=== PATIENT | female | born 1960 | race Caucasian/White ===

== ENCOUNTER 2019-03-08 10:57 | Emergency (ER) | payer OTHER ==
[~2019-03-08] VITALS: Ht 152.4 cm; Wt 72.0 kg
[2019-03-08] MEDS ORDERED: SIMV20TA5 PO (12:49)
[2019-03-08] MEDS ORDERED: GABA600T13 PO (12:49)
[2019-03-08] MEDS ORDERED: PIOG30TA71 PO (12:49)
[2019-03-08] MEDS ORDERED: GLIP5TAB13 PO (12:49)
[2019-03-08] MEDS ORDERED: METF500T PO (12:49)
[2019-03-08] MEDS ORDERED: LISI30TA4 PO (12:49)
[2019-03-08] MEDS ORDERED: METH500T6 PO (12:49)
[2019-03-08] MEDS ORDERED: ALBU18HF2 INH (12:49)
[2019-03-08 12:54] LABS: CLARITY,URINE CLOUDY (Clear); COLOR,URINE YELLOW (Yellow); GLUCOSE, URINE 100 mg/dl (Neg); KETONES,URINE 15 mg/dl (Neg); LEUKOCYTE ESTERASE ,URINE NEGATIVE (Neg); NITRITES, URINE NEGATIVE (Neg); OCCULT BLOOD,URINE MODERATE (Neg); PROTEIN,URINE 100 mg/dl (Neg); UROBILINOGEN,URINE 0.2 E.U/dL (0.2-1.0)
[2019-03-08 12:57] LABS: UA COLLECTION TYPE OTHER
--- NOTE | 2019-03-08 13:00 | NUR ---
PT NOW ALSO CO BACK BPAIN AND ABD PAIN 10/10 WITH CHILLS.
[2019-03-08 13:02] LABS: BACTERIA,URINE 2+ /HPF (Neg); MUCUS STRANDS MANY /LPF (Neg); RBC,URINE 20-50 /HPF (0-2); SQUAMOUS EPITHELIAL CELL,UR MANY /LPF (FEW); WBC,URINE 0-4 /HPF (0-4)
[2019-03-08 13:20] VITALS: BP 151/77
[2019-03-08 13:21] LABS: BASOPHILS # (AUTO) 0.1 X10'3 (0-0.2); BASOPHILS % (AUTO) 0.5 % (0-1); EOSINOPHILS % (AUTO) 0.1 % (0-6); HEMATOCRIT 40.7 % (35.0-45.0); HEMOGLOBIN 13.6 g/dl (12.0-16.0); LYMPHOCYTES # (AUTO) 1.7 X10'3 (1.1-4.8); LYMPHOCYTES % (AUTO) 14.2 % (21-51); MEAN CORPUSCULAR HEMOGLOBIN 30.2 PG (27.0-31.0); MEAN CORPUSCULAR HGB CONC 33.3 g/dL (33.0-36.5); MEAN CORPUSCULAR VOLUME 90.8 FL (78-98); MEAN PLATELET VOLUME 9.4 FL (7.4-10.4); MONOCYTES # (AUTO) 0.6 X10'3 (0-0.9); MONOCYTES % (AUTO) 5.4 % (2-12); NEUTROPHILS # (AUTO) 9.3 X10'3 (1.8-7.7); NEUTROPHILS % (AUTO) 79.8 % (42-75); PLATELET COUNT 322 X10'3 (140-440); RED BLOOD COUNT 4.49 X10'6 (4.20-5.60); RED CELL DISTRIBUTION WIDTH 14.3 % (11.5-14.5); WHITE BLOOD COUNT 11.7 X10'3 (4.5-11.0)
[2019-03-08 13:37] LABS: ALANINE AMINOTRANSFERASE 21 U/L (12-78); ALBUMIN 3.8 G/DL (3.4-5.0); ALBUMIN/GLOBULIN RATIO 0.8 (1.1-1.5); ALKALINE PHOSPHATASE 108 IU/L (46-116); ANION GAP 12 (8-16); ASPARTATE AMINO TRANSFERASE 15 U/L (10-37); BILIRUBIN,TOTAL 0.4 MG/DL (0.1-1.0); BLOOD UREA NITROGEN 12 MG/DL (7-18); BUN/CREATININE RATIO 14.6 (6.6-38.0); CALCIUM 9.4 MG/DL (8.5-10.1); CHLORIDE 104 MMOL/L (99-107); CREATININE 0.82 MG/DL (0.40-0.90); GLUCOSE 195 MG/DL (70-104); POTASSIUM 3.7 MMOL/L (3.5-5.1); SODIUM 141 MMOL/L (135-145); TOTAL PROTEIN 8.4 G/DL (6.4-8.2); eGFR 71 ML/MIN
--- NOTE | 2019-03-09 20:08 | NUR ---
CALLED PT PER DR JACKSON REGARDING HEMATURIA AND INSTRUCTED PT TO FOLLOW UP WITH PMD FOR FURTHER WORK UP
== END 2019-03-08 14:11 | disposition home or self-care (01) ==
LOC: ER 10:59
DX: E11.9 Type 2 diabetes mellitus without complications (principal); I10 Essential (primary) hypertension; Z76.0 Encounter for issue of repeat prescription; R31.29 Other microscopic hematuria; E78.00 Pure hypercholesterolemia, unspecified; G89.29 Other chronic pain; M06.9 Rheumatoid arthritis, unspecified; F17.200 Nicotine dependence, unspecified, uncomplicated; F12.90 Cannabis use, unspecified, uncomplicated; Z79.899 Other long term (current) drug therapy
CPT/HCPCS: 36415; 80053; 81001; 82948; 85025; 99283

== ENCOUNTER 2019-04-06 09:24 | Emergency (ER) | payer MEDICAID ==
[~2019-04-06] VITALS: Ht 152.4 cm; Wt 73.0 kg
[~2019-04-06 09:24] MED LIST: ALBU18HF2 INH; GABA600T13 PO; GLIP5TAB13 PO; LISI30TA4 PO; METF500T PO; METH500T6 PO; PIOG30TA71 PO; SIMV-42 PO
[2019-04-06 09:27] VITALS: BP 165/80
[2019-04-06] MEDS ORDERED: PIOG30TA71 PO (10:23)
[2019-04-06] MEDS ORDERED: LISI30TA4 PO (10:23)
[2019-04-06] MEDS ORDERED: GABA600T13 PO (10:23)
[2019-04-06] MEDS ORDERED: GLIP5TAB13 PO (10:23)
[2019-04-06] MEDS ORDERED: METF500T PO (10:23)
[2019-04-06] MEDS ORDERED: SIMV-42 PO (10:23)
== END 2019-04-06 10:46 | disposition home or self-care (01) ==
LOC: ER 09:24
DX: E11.9 Type 2 diabetes mellitus without complications (principal); E78.5 Hyperlipidemia, unspecified; I10 Essential (primary) hypertension; E78.00 Pure hypercholesterolemia, unspecified; G89.29 Other chronic pain; M06.9 Rheumatoid arthritis, unspecified; F12.90 Cannabis use, unspecified, uncomplicated; Z79.899 Other long term (current) drug therapy
CPT/HCPCS: 99283